=== PATIENT | female | born 1970 | race Caucasian/White ===

== ENCOUNTER 2024-09-17 09:37 | Outpatient (AMB) | payer BC, SELFPAY ==
--- NOTE | 2024-09-17 09:38 | HO.SPINEOV ---
Vital Signs 09/17/24 09:42 Height 5 ft 8 in Weight 153 lb BMI 23.3 Intake Visit Reasons: Lumbar radiculopathy Intake Note: Ms. Boswell is here today c/o Low back pain. Ripsaw Matcher Required: No Allergies Penicillins Allergy (Mild, Verified 09/17/24 09:45) Hives Physical Exam Vital Signs: BMI result Body Mass Index 23.3 Assessment & Plan Assessment & Plan (1) Back pain: Code(s): M54.9 - Dorsalgia, unspecified Category: Medical Plan Dear DR Nguyen, Thank you for referring Mrs Boswell to our office today. She is a very nice 54-year-old female history of rheumatoid arthritis presents to the office today for evaluation chronic low back pain. The patient reports that the symptoms all started when she was 28 years old. She was involved in a recreational activity where she fell down and immediately had a feeling of acute onset of back pain. She ended up not being able to walk standing up straight for about 6 weeks. After that time, she has always had on and off back pain but escalating over the years. She has always generally just treated it with activity modifications, conservative management with physical therapy, chiropractic, acupuncture, Tylenol, Motrin etc.. Over the last number of the years it has gotten significantly worse. She will have the pain pretty much all day every day. It will occasionally radiate down primarily the right leg with tingling and numbness in her right leg going to her toes. She has had that for sometime as well. If she has to be active or even something as simple as sitting in a chair for extended periods of time the pain can be almost unbearable and she will have to go home lay down and put a heating pad on. She feels like her quality of life is significantly diminished because of the pain. She underwent a number of injections at your office in the last year. The most noticeable improvement that she had which lasted a few weeks was an L4-5 epidural. She also underwent physical therapy last year for number of months but it made no improvements. She comes in today with an MRI at [facility] showing severe degenerative disc disease at L4-5. PMH: She has history of rheumatoid arthritis and she has HLA B27 positive antigen. She is a history of migraines, at 1 point was diagnosed with pseudotumor cerebri. History of chronic hives, cholecystectomy. History of depression and ADD. Denies any history of heart attacks, strokes, pulmonary problems, liver disease, renal disease, cancer, blood clots, liver disorders or major abdominal surgery. Social hx: She uses marijuana daily at night to help with the pain and help her to sleep but otherwise she does not smoke or drink any alcohol. Medications: Escitalopram, Xolair injections monthly, Rinvoq daily pill for rheumatoid, dextromethorphan, Tylenol Allergies: None Physical exam: Awake alert oriented no acute distress, slow to stand up, motor examination reveals pain with hip flexion limiting her movement somewhat but gross motor examination is normal with normal reflexes. She does have pain with lying flat in the examining table across her low back. RIGOBERTO testing degenerate some reproducible back pain. Imaging review: Lumbar MRI done at [facility] from 2023 compared to 2019 and there is transitional anatomy, there is partial sacralization of the L5 vertebrae. Anatomically with the vascular anatomy it looks more like L5-S1 but at this level there is severe disc collapse with [id number] endplate contact. I do not see any evidence of misalignment or any evidence of STIR signal or Modic plate and changes. There is no evidence of nerve compression. Impression: 54-year-old female history of rheumatoid arthritis with history of chronic low back pain dating back to a traumatic event when she was in her 20s. The pain has been getting steadily worse. She has been through conservative treatment extensively. She has pain pretty much from the moment she gets up in the morning until she goes to bed. She uses marijuana in the evenings to help sleep because even lying down in bed is uncomfortable. She also complains of some right leg pain with tingling and numbness as well. That is been going on for years as well. Generally the conservative management she has done has been ineffective. She did get a 2 week relatively decent improvement after an L4-5 epidural done in July. The only finding on her MRI that is demonstrating any abnormality is the severe disc collapse at L4-5. I explained to her that back pain is complicated and often it can be difficult to know exactly where it is coming from. I reviewed her MRI with her and explained to her the in light of the fact that she has only 1 degenerative disc and it is severely collapsed that this could represent the source of her pain but I could not guarantee to 100%. Because she has failed conservative treatment, I think it is worth reviewing this with Dr. Iqbal to see if he would offer her an artificial disc versus anterior lumbar interbody fusion. Once I have a chance to review everything with him I will contact her. We did discuss the general success rates for this kind of surgery at 60-70%. I will also get a set of upright flexion-extension x-rays just to make sure we are not missing occult instability. Thank you for allowing us to care for your patient. The total time spent with this visit with this patient was 45 minutes reviewing history, physical exam, lumbar imaging review, and implementation of treatment plan or further diagnostic testing Kalia Iqbal MD,PhD [facility] Orders: Orders XR lumbar spine 4V min Today M54.9 - Dorsalgia, unspecified Coding Level of Care Code New Pt Level 4 (05440) Diagnoses Back pain M54.9
[2024-09-17 09:42] VITALS: BMI 23.3
== END 2024-09-17 10:54 | disposition home or self-care (01) ==
PROVIDERS: PCP Family Medicine; Referring Provider Student in an Organized Health Care Education/Training Program; Visit Provider Physician Assistant
DX: M54.9 Dorsalgia, unspecified (principal)
CPT/HCPCS: 99204

== ENCOUNTER 2024-09-17 09:37 | Outpatient (REF) | payer BC, SELFPAY ==
--- NOTE | ~2024-09-17 | XR_ITS ---
CLINICAL HISTORY: M54.9 - Dorsalgia, unspecified 4 views lumbar spine Comparison: None Findings: No fractures or dislocations. Normal vertebral body alignment. There is moderate L4-5 disc space narrowing. Sacroiliac joints unremarkable. Impression: Moderate L4-5 disc space narrowing with posterior facet hypertrophy. No spondylolisthesis. No acute skeletal abnormality. This document has been electronically signed by: Aniceto Ramos MD on 09/17/2024 21:42:47
== END 2024-09-17 09:38 | disposition home or self-care (01) ==
LOC: HO.HOSX 09:37
PROVIDERS: PCP Family Medicine; Referring Provider Student in an Organized Health Care Education/Training Program; Visit Provider Physician Assistant
DX: M54.9 Dorsalgia, unspecified (principal)
CPT/HCPCS: 72110

== ENCOUNTER 2025-01-04 15:13 | Outpatient (AMB) | payer BC, SELFPAY ==
--- OUTSIDE RECORDS SUMMARY | 2025-01-04 15:16 | XMS_ITS | Patient Health Record ---
Author Organization [facility] Address [address] [place] [id number] Care Team Providers Care Manager Web Application Name Role Phone Omari Cantor Primary Care Provider [phone] Reason For Referral No Information Plan Of Treatment No Information
--- OUTSIDE RECORDS SUMMARY | 2025-01-04 15:16 | XMS_ITS | Clinical Summary ---
Author Organization [facility] Address [address] [place] [id number] Care Team Providers Care Flatwork Washer Name Role Phone Kady Reis MD Primary Care Provider [phone] Allergies Active Allergy Reactions Criticality Noted Date Comments Penicillins 11/20/2020 Medications Medication Sig Dispensed Refills Start Date End Date Status escitalopram (LEXAPRO) 20 MG tablet Take 20 mg by mouth daily. as directed 0 10/28/2020 Active BOTOX 200 units SOLR injection 0 08/28/2020 Active leflunomide (ARAVA) 20 MG tablet Take 20 mg by mouth daily. 0 08/18/2020 Active buPROPion (WELLBUTRIN XL) 300 MG 24 hr tablet TAKE 1 TABLET BY MOUTH EVERY DAY SCHEDULE AN APPT 0 10/31/2020 Active folic acid (FOLVITE) tablet 1 mg Take 1,000 mcg by mouth daily. 0 11/16/2020 Active amphetamine-dextroamp hetamine (ADDERALL) 10 MG tablet TAKE 1 TABLET BY MOUTH TWICE A DAY FOR 28 DAYS 0 11/12/2020 Active estradiol (CLIMARA) 0.0375 MG/24HR Place 1 patch onto the skin. 0 11/03/2020 Active progesterone (PROMETRIUM) 100 MG capsule Take 100 mg by mouth daily. 0 11/03/2020 Active omalizumab (XOLAIR) 150 MG/ML SOSY injection Inject under the skin. 0 Active Active Problems Problem Noted Date Diagnosed Date Rheumatoid arthritis 11/20/2020 Family History Medical History Relation Name Comments Cancer Father Cancer Maternal Aunt Cancer Maternal Uncle Cancer Mother Stroke Mother Relation Name Status Comments Father Maternal Aunt Maternal Uncle Mother Social History Tobacco Use Types Packs/Day Years Used Date Smoking Tobacco: Former Cigarettes Q uit: 2020 Smokeless Tobacco: Never Sex and Gender Information Value Date Recorded Sex Assigned at Female 11/20/2020 2:30 PM EDT Gender Identity Not on file Sexual Orientation Not on file Last Filed Vital Signs Vital Sign Reading Time Taken Comments Blood Pressure 147/90 11/20/2020 2:34 PM EDT Pulse 90 11/20/2020 2:34 PM EDT Temperature 36.7 ??C (98 ??F) 11/20/2020 2:34 PM EDT Respiratory Rate - - Oxygen Saturation 95% 11/20/2020 2:34 PM EDT Inhaled Oxygen Concentration - - Weight 76.7 kg (169 lb) 11/20/2020 2:34 PM EDT Height 177.8 cm (5' 10 ) 11/20/2020 2:34 PM EDT Body Mass Index 24.25 11/20/2020 2:34 PM EDT Plan of Treatment Health Maintenance Due Date Last Done Comments Hepatitis B Vaccines (1 of 3 - 3-dose series) 1971 Hepatitis C Screening 1971 COVID-19 Vaccine (#1) 01/22/1972 Pneumococcal Vaccine (1 of 2 - PCV) 1977 Depression Screening 1983 Preventative Health Evaluation 1989 DTap / Tdap / Td (1 - Tdap) 1990 Cervical Cancer Screening (P ap Smear) 1992 Colon Cancer Screening (Colonoscopy) 2016 Breast Cancer Screening (Mammogram) 2021 Shingrix-Zoster Vaccine (1 of 2) 2021 Influenza Vaccine (#1) 2024 RSV Ped < 20 months Aged Out No longe r eligible based on patient's age to complete this topic Care Teams Flatwork Washer Relationship Specialty Start Date End Date Kady Reis MD [address] [place] [id number] PCP - General Internal Medicine 10/06/20
--- NOTE | 2025-01-04 15:20 | A.SPINEOV_ITS ---
Intake Visit Reasons: Discuss Surgery Intake Note: Ms. Boswell is here today to Discuss surgery. Breakdown Worker Required: No Allergies Penicillins Allergy (Mild, Verified 01/04/25 15:23) Hives Assessment & Plan Assessment & Plan (1) Lumbar degenerative disc disease: Code(s): M51.369 - Other intervertebral disc degeneration, lumbar region without mention of lumbar back pain or lower extremity pain Category: Medical Plan Dear colleague, On 01/04/2025 I saw for clinical follow-up Minerva Boswell. She suffering from intractable low back pain that failed conservative management over the years in the MRI showing transitional anatomy with severe degenerative disc disease L5-S1. She comes in to meet me and to discuss the proposed anterior lumbar interbody fusion. I answered all her questions about the procedure, possible complications and expected postoperative course. Also the do's and do not after surgery. She is leaning towards surgery would prefer to have it done over the summer. She will call my office to schedule the surgery. She also needs to be seen by preoperatively. I spent 40 minutes in his consult to review imaging and to answer questions. Last Iqbal MD, PhD Spine Fellowship Trained Neurosurgeon Director, [facility] [facility] Coding Level of Care Code Est Pt Level 5 (21042) Diagnoses Lumbar degenerative disc disease M51.369
== END 2025-01-04 15:52 | disposition home or self-care (01) ==
LOC: HO.HNS 15:14
PROVIDERS: PCP Family Medicine; Visit Provider Neurological Surgery
DX: M51.369 Other intervertebral disc degeneration, lumbar region without mention of lumbar back pain or lower extremity pain (principal)
CPT/HCPCS: 99215

== ENCOUNTER → 2025-01-04 15:13 | Outpatient (BNVA) | payer BC, SELFPAY | PROVIDERS: PCP Family Medicine; Visit Provider Neurological Surgery ==